=== PATIENT | male | born 1990 | race Caucasian/White ===

== ENCOUNTER 2025-06-09 12:09 | Emergency (ER) | payer SELFPAY ==
[2025-06-09 12:13] VITALS: BP 150/81
--- NOTE | 2025-06-09 13:20 | ED.MUSCINJ ---
HPI-Injury
General
Chief Complaint: Musculo-Skeletal Complaint
Source: patient
Exam Limitations: none
Time Seen by Provider: 06/09/25 13:03
History of Present Illness-Injury
Initial Injury comments:
35-year-old male presents complaining of right leg pain. He was on a machine lifting a log and he backed up into a different log. His right leg got crushed between the log and the machine. Since then he has had pain and swelling to the lateral
aspect of the right leg. He denies numbness or tingling currently to the foot.
Past History
Past History
ED Past Medical History: None
ED Past Surgical History: None
Social History
Living: with family
Phy Exam
Physical Exam
Physical Exam:
General: Well-appearing male no acute respiratory distress
Musculoskeletal exam: Right leg is swollen and tender over the anterior lateral proximal blair. There is an overlying abrasion. The knee itself and the ankle itself are nontender. He has good range of motion to the right ankle. Passive range of
motion does not reproduce any pain into the left blair or calf.
Vascular: 2+ DP pulse right foot compartments are soft to the right leg there is a hematoma noted to the anterior lateral right blair
Neurologic: Good sensation right foot
Injury Course
Orders/Labs/Results
Orders:
Orders
06/09/25 12:16
Tibia/Fibula, Right 2 View [CR Leg Tibia/fibula Right 2 Vw] Urgent
Comment: right leg
Reason For Exam: log hit back of his leg. pain and swelling
06/09/25 13:16
Knee Immobilizer Right-Treatme ONCE
MDM/Problems Addressed
Differential Diagnosis Includes:
Right leg pain. Consider contusion versus hematoma versus fracture versus compartment syndrome: No exam findings concerning of compartment syndrome given lack of persistent
Pain out of portion, he has pulse to the foot, the compartments are soft, good capillary refill. No I did discuss with him findings of compartment syndrome and things to look for. X-rays were personally visualized and demonstrate a transverse
fracture of the proximal third of the fibula.
Will place knee immobilizer and provide crutches as needed for support. Again, return precautions were given in the setting of a crush injury but did advise follow-up with orthopedics otherwise
*Pulse Oximetry
SaO2: 98
Oxygen Mode of Delivery: Room air
Patient hypoxic: no
*Critical Care Note
Total Time (30-74mins, 75-104mins- exclusive of procedures): Not Applicable
ED Attending Note
-
Portions of this chart may have been created with voice recognition software.� Occasional wrong word or��sound alike� substitutions may have occurred due to the inherent limitations of voice recognition software.
Discharge Plan
Departure
Patient Disposition: Home (Routine Discharge)
Date of Disposition: 06/09/25
Time of Disposition: 13:26
Patient with high blood pressure during this ER visit?: No
Discharge Problem:
Fibula fracture
Instructions: Acute compartment syndrome, Muscle and Bone Pain (DC)
Referrals:
Keith Lewis MD [Active, Orthopedics]
Activity Restrictions/Additional Instructions:
Elevate for swelling. Use Tylenol or ibuprofen for pain. Use brace as needed for support. Return here for increasing pain numbness to the foot discoloration to the foot as discussed.
Interventions
Interventions:
*General Assessment Last Done: 06/09/25 12:13
*Neglect/Abuse Screening Last Done: 06/09/25 12:13
*ED COVID-19 Vaccine History Last Done: 06/09/25 12:13
*ED Influenza Vaccine History Last Done: 06/09/25 12:13
*Risk Screen - Suicide (C-SSRS) Last Done: 06/09/25 12:13
Discharge Date and Time
Print Language: GUINEAN
== END 2025-06-09 13:46 | disposition home or self-care (01) ==
LOC: EMR 12:09
PROVIDERS: EMERGENCY PHYSICIAN Emergency Medicine
DX: S82.431A Displaced oblique fracture of shaft of right fibula, initial encounter for closed fracture (principal); T79.A21A Traumatic compartment syndrome of right lower extremity, initial encounter; W31.82XA Contact with other commercial machinery, initial encounter
CPT/HCPCS: 99283; 29505; 73590